=== PATIENT | male | born 1960 | race Caucasian/White ===

== ENCOUNTER 2017-04-29 20:39 | Emergency (ER) | payer MEDICARE, MEDICAID ==
[~2017-04-29] VITALS: Ht 175.3 cm; Wt 72.7 kg
[~2017-04-29 20:39] MED LIST: HYDR-3535 PO; LISI40TA PO
[2017-04-29 20:45] VITALS: BP 169/92; PULSE 117; RESP 20; O2SAT 96
[2017-04-29] MEDS ORDERED: SODIUM CHLOR 0.9% 1000 ML INJ 1,000 ML IV ONE (20:51)
[2017-04-29 20:54] VITALS: O2SAT 96
--- NOTE | 2017-04-29 20:55 | PD ---
HPI Chief Complaint: OD/ Ingestion Time Seen by Provider: 20:43 Travel History International Travel<30 days: No Contact w/Intl Traveler<30days: No Traveled to known affect area: No History of Present Illness HPI The patient is a 56-year-old male who presents to the emergency department via EMS for possible overdose. According to EMS the patient was found in an area down for IV drug abuse, with poor inspiratory effort and altered mental status. EMS states the patient received Narcan 2 mg and then awakened. The patient also has a hydrocodone/acetaminophen bottle with 10 mg/ 325 mg dosing, [address] Lunsford and filled today, there was only 1 pill left. The patient denies ingesting the pills and denies selling the pills, he is unsure where the other 89 pills are. He does admit to heroin use earlier today. He denies any current physical complaints but is blind out of both eyes. The patient denies any chest pain, short of breath, nausea, vomiting, diarrhea, or diaphoresis. Symptoms are moderate, possibly exacerbated by illicit drug use or overdose, and alleviated with Narcan. He denies any suicidal or homicidal ideation. The patient also admits to taking Xanax. PFSH Past Medical History Cancer: No Cardiovascular Problems: No Cerebrovascular Accident: No Diabetes: No Endocrine: No Genitourinary: No Hepatitis: No Hiatal Hernia: No Immune Disorder: No Musculoskeletal: Yes (BACK PAIN) Neurologic: No Psychiatric: No Reproductive: No Respiratory: No Myocardial Infarction: No Thyroid Disease: No Past Surgical History Body Medical Devices: NONE Eye Surgery: Yes ([facility] SX -AGE 13 AND AGE 18) Social History Tobacco Use: Yes Substance Use: Yes Allergies-Medications (Allergen,Severity, Reaction): Coded Allergies: No Known Allergies (Unverified , 09/26/14) Reported Meds & Prescriptions Reported Meds & Active Scripts Active Reported Xanax (Alprazolam) 2 Mg Tab 2 Mg PO DAILY Hydrocodone-Acetaminophen 10-325 mg Tab 1 Tab PO Q8HR PRN Lisinopril 40 Mg Tab 40 Mg PO DAILY Review of Systems Except as stated in HPI: all other systems reviewed are Neg General / Constitutional: No: Fever Cardiovascular: No: Chest Pain or Discomfort Respiratory: No: Shortness of Breath Gastrointestinal: No: Nausea, Vomiting, Abdominal Pain Neurologic: Positive: Change in Mentation (per EMS) Physical Exam Narrative GENERAL: Awake, alert, nontoxic-appearing 56-year-old male who appears his stated age and is in no acute respiratory distress. SKIN: Focused skin assessment warm/dry. HEAD: Atraumatic. Normocephalic. EYES: Blind from both eyes. ENT: No nasal bleeding or discharge. Mucous membranes pink and moist. Nasal trumpet in place left near. NECK: Trachea midline. No JVD. CARDIOVASCULAR: Regular, tachycardic with a heart rate of 115. RESPIRATORY: No accessory muscle use. Clear to auscultation. Breath sounds equal bilaterally. GASTROINTESTINAL: Abdomen soft, non-tender, nondistended. No rebound tenderness. MUSCULOSKELETAL: Tract llamas noted on both upper extremities. NEUROLOGICAL: Awake and alert. Blind. Moves all 4 extremities. Oriented 3. PSYCHIATRIC: Appropriate mood and affect; insight and judgment normal. Data Data Last Documented VS Vital Signs Date Time Temp Pulse Resp B/P (MAP) Pulse Ox O2 Delivery O2 Flow Rate FiO2 04/29/17 20:54 96 Room Air 04/29/17 20:45 117 20 169/92 (117) Orders Orders Electrocardiogram (04/29/17 20:51) Complete Blood Count With Diff (04/29/17 20:51) Comprehensive Metabolic Panel (04/29/17 20:51) Prothrombin Time / Inr (Pt) (04/29/17 20:51) Act Partial Throm Time (Ptt) (04/29/17 20:51) Iv Access Insert/Monitor (04/29/17 20:51) Ecg Monitoring (04/29/17 20:51) Oximetry (04/29/17 20:51) Sodium Chloride 0.9% Flush (Ns Flush) (04/29/17 21:00) Sodium Chlor 0.9% 1000 Ml Inj (Ns 1000 M (04/29/17 20:51) Drug Screen, Random Urine (04/29/17 20:51) Alcohol (Ethanol) (04/29/17 20:51) Salicylates (Aspirin) (04/29/17 20:51) Tylenol (Acetaminophen) (04/29/17 20:51) Potassium Chloride (Kcl) (04/29/17 22:15) Labs Laboratory Tests Test 04/29/17 20:57 White Blood Count 6.1 TH/MM3 Red Blood Count 5.33 MIL/MM3 Hemoglobin 16.0 GM/DL Hematocrit 47.4 % Mean Corpuscular Volume 88.9 FL Mean Corpuscular Hemoglobin 30.0 PG Mean Corpuscular Hemoglobin Concent 33.8 % Red Cell Distribution Width 13.3 % Platelet Count 303 TH/MM3 Mean Platelet Volume 8.5 FL Neutrophils (%) (Auto) 69.3 % Lymphocytes (%) (Auto) 18.6 % Monocytes (%) (Auto) 11.4 % Eosinophils (%) (Auto) 0.3 % Basophils (%) (Auto) 0.4 % Neutrophils # (Auto) 4.2 TH/MM3 Lymphocytes # (Auto) 1.1 TH/MM3 Monocytes # (Auto) 0.7 TH/MM3 Eosinophils # (Auto) 0.0 TH/MM3 Basophils # (Auto) 0.0 TH/MM3 CBC Comment DIFF FINAL Differential Comment Prothrombin Time 11.5 SEC Prothromb Time International Ratio 1.0 RATIO Activated Partial Thromboplast Time 30.5 SEC Blood Urea Nitrogen 9 MG/DL Creatinine 1.02 MG/DL Random Glucose 187 MG/DL Total Protein 9.0 GM/DL Albumin 4.2 GM/DL Calcium Level 8.4 MG/DL Alkaline Phosphatase 127 U/L Aspartate Amino Transf (AST/SGOT) 68 U/L Alanine Aminotransferase (ALT/SGPT) 110 U/L Total Bilirubin 0.7 MG/DL Sodium Level 134 MEQ/L Potassium Level 3.2 MEQ/L Chloride Level 98 MEQ/L Carbon Dioxide Level 25.5 MEQ/L Anion Gap 11 MEQ/L Estimat Glomerular Filtration Rate 76 ML/MIN Salicylates Level LESS THAN 1.7 MG/DL Acetaminophen Level LESS THAN 2.0 MCG/ML Ethyl Alcohol Level LESS THAN 3 MG/DL [facility] Medical Decision Making Medical Screen Exam Complete: Yes Emergency Medical Condition: Yes Medical Record Reviewed: Yes Interpretation(s) EKG reveals sinus tachycardia with a heart rate of 115. No ischemic changes noted. Differential Diagnosis Differential diagnoses includes intentional overdose, accidental overdose, heroin use, hydrocodone overdose, Tylenol overdose, polysubstance abuse, aspiration, electrolyte abnormality. Narrative Course IV was established, labs are drawn and sent, and the patient was placed on cardiac telemetry monitoring and continuous pulse oximetry monitoring. EKG was ordered and interpreted. Tox screen and Tylenol level were sent to lab. The patient was administered and IV fluids and monitored in the emergency department. The patient was reevaluated at 9:39 PM, was still awake and alert and answering questions. The patient continued to be monitored in the emergency department. The patient was reevaluated at 10:10 PM, he continues to be awake and alert. Potassium is low at 3.2, was replaced orally. Acetaminophen level is less than 2.0, I doubt the patient overdosed on the hydrocodone earlier during the day. The patient was monitored for 4 hours, was awake and alert, no relapse, he stable for outpatient follow-up. He is advised to stop using heroin. Diagnosis Primary Impression: Accidental heroin overdose Qualified Codes: T40.1X1A - Poisoning by heroin, accidental (unintentional), initial encounter Patient Instructions: General Instructions Additional Instructions: Stop using heroin. Follow-up with your primary physician. Return if symptoms worsen or progress. Med/Other Pt SpecificInfo: No Change to Meds Disposition: 01 DISCHARGE HOME Condition: Stable Barney Foy MD Apr 29, 2017 20:55
[2017-04-29] MEDS ORDERED: SODIUM CHLORIDE 0.9% FLUSH 10 ML FLUSH IVF PRN (21:00)
[2017-04-29] MEDS ORDERED: LISI40TA PO (21:06)
[2017-04-29] MEDS ORDERED: HYDR-3583 PO (21:06)
[2017-04-29] MEDS ORDERED: XANA2TAB2 PO (21:19)
[2017-04-29 21:34] LABS: AUTOMATED NEUTROPHIL # 4.2 TH/MM3 (1.8-7.7); BASOPHIL % 0.4 % (0.0-2.0); EOSINOPHIL % 0.3 % (0.0-4.0); HEMATOCRIT 47.4 % (39.0-51.0); HEMO FLAGS DIFF FINAL; LYMPH % 18.6 % (9.0-44.0); LYMPHOCYTE # 1.1 TH/MM3 (1.0-4.8); MEAN CELL VOLUME 88.9 FL (80.0-100.0); MEAN CORPUSCULAR HGB CONC 33.8 % (32.0-36.0); MONO % 11.4 % (0.0-8.0); NEUT % 69.3 % (16.0-70.0); PLATELET COUNT 303 TH/MM3 (150-450); RED BLOOD COUNT 5.33 MIL/MM3 (4.50-5.90); RED CELL DISTRIBUTION WIDTH 13.3 % (11.6-17.2); WHITE BLOOD COUNT 6.1 TH/MM3 (4.0-11.0)
[2017-04-29 21:51] LABS: APTT (PATIENT) 30.5 SEC (24.3-30.1); PROTHROMBIN TIME - PATIENT 11.5 SEC (9.8-11.6)
[2017-04-29 21:56] LABS: ANION GAP 11 MEQ/L (5-15)
[2017-04-29 22:02] LABS: ACETAMINOPHEN LESS THAN 2.0 MCG/ML (10.0-30.0); ALCOHOL LESS THAN 3 MG/DL (0-5); ALKALINE PHOSPHATASE 127 U/L (45-117); ALT (GPT) 110 U/L (12-78); AST (GOT) 68 U/L (15-37); BICARBONATE 25.5 MEQ/L (21.0-32.0); BLOOD UREA NITROGEN 9 MG/DL (7-18); CHLORIDE 98 MEQ/L (98-107); GLOMERULAR FILTRATION RATE 76 ML/MIN (>89); POTASSIUM 3.2 MEQ/L (3.5-5.1); SODIUM (NA) 134 MEQ/L (136-145); TOTAL BILIRUBIN ADULT 0.7 MG/DL (0.2-1.0)
[2017-04-29] MEDS ORDERED: POTASSIUM CHLORIDE 20 MEQ CONTROLLED RELEASE TAB PO ONE (22:15)
[2017-04-29 22:21] VITALS: BP 153/94; PULSE 99; RESP 16; O2SAT 99
[2017-04-30 00:04] VITALS: BP 129/84; PULSE 98; RESP 18; O2SAT 98
[2017-04-30 00:54] VITALS: BP 140/97
--- NOTE | 2017-04-30 16:40 | EKG ---
Date Performed: 04/29/2017 Time Performed: 20:51:19 PTAGE: 56 years EKG: SINUS TACHYCARDIA ABNORMAL RHYTHM ECG Since PREVIOUS TRACING : now tachycardic PREVIOUS TRACIN09/26/2014 06.52 DOCTOR: Danielle Gomez Interpretating Date/Time 04/30/2017 16:38:11
== END 2017-04-30 01:17 | disposition home or self-care (01) ==
LOC: NEPE 20:39
DX: T40.1X1A Poisoning by heroin, accidental (unintentional), initial encounter (principal); R00.0 Tachycardia, unspecified
CPT/HCPCS: 80053; 80307; 85025; 85610; 85730; 93005; 96360; 99284; J7030